=== PATIENT | male | born 1955 | race Caucasian/White ===

== ENCOUNTER 2018-04-23 11:56 | Observation (INO) ==
[2018-04-23 12:32] LABS: BASOPHILS # (AUTO) 0.1 X10^3/uL (0.0-0.1); EOSINOPHILS # (AUTO) 0.1 x10^3/uL (0.0-0.2); HEMATOCRIT 40.2 % (42.0-54.0); LYMPHOCYTES # (AUTO) 2.4 X10^3/uL (1.3-2.9); LYMPHOCYTES % (AUTO) 42.6 % (21.0-51.0); MEAN CORPUSCULAR HEMOGLOBIN 31.4 pg (27.0-34.0); MEAN CORPUSCULAR HGB CONC 34.8 g/dL (33.0-35.0); MEAN CORPUSCULAR VOLUME 90.2 fL (80.0-100.0); MEAN PLATELET VOLUME 7.7 fL (7.4-11.0); MONOCYTES # (AUTO) 0.4 x10^3/uL (0.3-0.8); MONOCYTES % (AUTO) 6.5 % (0.0-13.0); NEUTROPHILS # (AUTO) 2.7 x10^3/uL (2.2-4.8); NEUTROPHILS % (AUTO) 47.9 % (42.0-75.0); PLATELET COUNT 210 X10^3/uL (150.0-450.0); RED BLOOD COUNT 4.45 X10^6/uL (4.7-6.0); RED CELL DISTRIBUTION WIDTH 13.1 % (11.6-16.5); WHITE BLOOD COUNT 5.6 X10^3/uL (3.6-10.0)
[2018-04-23 12:53] LABS: ALANINE AMINOTRANSFERASE 26 Units/L (12-78); ALBUMIN 3.5 g/dL (3.4-5.0); ALKALINE PHOSPHATASE 88 Units/L (46-116); ASPARTATE AMINO TRANSFERASE 44 Units/L (15-37); BLOOD UREA NITROGEN 14 mg/dL (7-18); CALCIUM 8.4 mg/dL (8.5-10.1); CARBON DIOXIDE 29.6 mmol/L (21-32); CHLORIDE 104 mmol/L (98-107); CREATINE KINASE 106 Units/L (39-308); CREATINE KINASE MB < 1.0 ng/mL (0-4.0); CREATININE 0.85 mg/dL (0.70-1.30); MAGNESIUM 2.1 mg/dL (1.7-2.9); SODIUM 140 mmol/L (136-145); TOTAL PROTEIN 6.6 g/dL (6.4-8.2); TROPONIN I < 0.02 ng/mL (0-1.5); eGFR NON BLACK RACES > 60 (>60)
[2018-04-23 12:55] LABS: CKMB % 0.9 % (<4)
--- NOTE | 2018-04-23 13:03 | RAD ---
Chest, one view Indication: Chest pain Comparison: None Findings: The heart is normal in size. No focal infiltrate, significant effusion or pneumothorax is i dentified. There is no acute osseous abnormality. Impression: No acute cardiopulmonary abnormality. Reported By:
--- NOTE | 2018-04-23 14:46 | DR.CP ---
HPI Time Seen Time Seen by Provider: 04/23/18 12:08 HPI Comment HPI Comment: CHEST PAIN WITH SOB AND DIAPHORESIS THAT STARTED 2 HOURS BEFORE COMING TO ED. PAIN SHARP MID STERNAL PAIN , PREVIOUSLY FELT BUT WORSE TODAY AND NOT RESOLVING. PAIN ASSOCIATED WITH DIZZINESS AND DIAPHORESIS. PAIN NON RADIATI NG. TOOK HIS DAILY BABY ASPRIN THIS AM. HISTORY CAD, HTN AND CHF. ALSO HAVING SOB. Complaint Chief Complaint Doctor Comments: CHEST PAIN TIMES 2 HRS. Reviewed Nurses Notes Review: Yes Source History Provided: Patient Mode of Arrival Mode of Arrival: Ambulatory Timing Came on: Suddenly Pain: Present Now Duration Duration: Constant Duration: Hours Location Location of Chest Pain: Chest (midsternal.) Chest Pain Radiation Location: None Context Onset: At rest Cardiac Risk Factors: Smoker, Family History, Hyperlipidemia and HTN PE Risk Factors: None History of: Similar pain in the past and Aspirin in last 24 hours Prehospital Care: ASA Quality Quality: Sharp Severity Severity: Moderate Modifying Factors Worsens: Exertion Impoves: Nothing Associated Signs and Symptoms Associated Signs and Symptoms: Shortness of Breath and Diaphoresis ROS Review of Systems Constitutional: No Symptoms Reported Eyes: No Symptoms Reported ENTM: No Symptoms Reported Respiratoy: Short of Breath Cardiovascular: Chest Pain Gastrointestinal/Abdominal: No Symptoms Reported Genitourinary: No Symptoms Reported Neurological: No Symptoms Reported Musculoskeletal: No Symptoms Reported Integumentary: No Symptoms Reported Endocrine: No Symptoms Reported Psychiatric: No Symptoms Reported All Other Systems: Reviewed and Negative PE Vitals Vitals: Temperature 98 F Pulse Rate [Left Brachial] 65 Pulse Rate 58 Respiratory Rate 18 Blood Pressure [Left Arm] 113/64 Blood Pressure 144/79 O2 Sat by Pulse Oximetry 95 General Limitations: No Limitations General Appearance: Alert and In No Apparent Distress Head Head Exam: Atraumatic and Normocephalic Eyes Eye exam: PERRL and EOMI; negative Scleral Icterus and Conjunctival Injection ENT ENT Exam: Normal Oropharynx, Normal External Ear Exam, Mucous Membranes Moist and TM's Normal Bilaterally Chest Chest Inspection: Symmetric Chest Wall Rise Respiratory Respiratory Exam: Normal Lung Sounds Bilat Respiratory Exam: Bilateral: Clear to Auscultation Cardiovascular Cardiovascular Exam: Regular Rate and Normal Rhythm Pulse: Normal Edema: Normal Abdominal Exam Abdominal Exam: Normal Bowel Sounds and Soft; negative Tenderness Extremities Extremities Exam: Normal Inspection Back Back Exam: Normal Inspection Neurologic Neurological Exam: Alert and CN II-XII Intact; negative Motor Sensory Deficit Psychiatric Psychiatric Exam: Normal Affect Skin Skin Exam: Intact MDM Differential Diagnosis Differential Diagnosis: Angina, CHF, Gastritis, Myocardial Infarction, Pericarditis, Pleuritis and Pneumonia COURSE Treatment Treatment: SEE ORDERS. Consultation Consultation Comments: PATIENT ADMITTED. Education/Counseling Education/Counseling: Family ROR Labs Reviewed Laboratory Results Reviewed?: Yes Result Diagrams: 04/24/18 04:10 04/24/18 04:10 Laboratory: WBC 5.7 X10^3/uL (3.6-10.0) 04/24/18 04:10 RBC 4.47 X10^6/uL (4.7-6.0) L 04/24/18 04:10 Hgb 14.2 g/dL (13.5-18.0) 04/24/18 04:10 Hct 40.5 % (42.0-54.0) L 04/24/18 04:10 MCV 90.5 fL (80.0-100.0) 04/24/18 04:10 MCH 31.8 pg (27.0-34.0) 04/24/18 04:10 MCHC 35.2 g/dL (33.0-35.0) H 04/24/18 04:10 RDW 13.2 % (11.6-16.5) 04/24/18 04:10 Plt Count 209 X10^3/uL (150.0-450.0) 04/24/18 04:10 MPV 8.1 fL (7.4-11.0) 04/24/18 04:10 Neut % (Auto) 46.5 % (42.0-75.0) 04/24/18 04:10 Lymph % (Auto) 43.2 % (21.0-51.0) 04/24/18 04:10 [place] % (Auto) 5.9 % (0.0-13.0) 04/24/18 04:10 Eos % (Auto) 3.7 % (0.9-2.9) H 04/24/18 04:10 Baso % (Auto) 0.7 % (0.2-1.0) 04/24/18 04:10 Neut # (Auto) 2.6 x10^3/uL (2.2-4.8) 04/24/18 04:10 Lymph # (Auto) 2.5 X10^3/uL (1.3-2.9) 04/24/18 04:10 [place] # (Auto) 0.3 x10^3/uL (0.3-0.8) 04/24/18 04:10 Eos # (Auto) 0.2 x10^3/uL (0.0-0.2) 04/24/18 04:10 Baso # (Auto) 0.0 X10^3/uL (0.0-0.1) 04/24/18 04:10 Absolute Nucleated RBC 0.1 /100WBC 04/24/18 04:10 INR Target Range - 04/23/18 12:21 INR 1.02 (0.8-1.3) 04/23/18 12:21 APTT 29.1 SECONDS (22.9-36.5) 04/23/18 12:21 PTT Comment - 04/23/18 12:21 Sodium 143 mmol/L (136-145) 04/24/18 04:10 Corrected Sodium TNP 04/24/18 04:10 Potassium 4.3 mmol/L (3.5-5.1) 04/24/18 04:10 Chloride 105 mmol/L (98-107) 04/24/18 04:10 Carbon Dioxide 30.5 mmol/L (21-32) 04/24/18 04:10 BUN 13 mg/dL (7-18) 04/24/18 04:10 Creatinine 0.88 mg/dL (0.70-1.30) 04/24/18 04:10 Est GFR (MDRD) Af Amer > 60 (>60) 04/24/18 04:10 Est GFR (MDRD) Non-Af > 60 (>60) 04/24/18 04:10 Glucose 98 mg/dL (65-99) 04/24/18 04:10 Calcium 8.0 mg/dL (8.5-10.1) L 04/24/18 04:10 Corrected Calcium 8.7 mg/dL (8.5-10.1) 04/24/18 04:10 Magnesium 1.9 mg/dL (1.7-2.9) 04/24/18 04:10 Total Bilirubin 0.40 mg/dL (0.2-1.0) 04/24/18 04:10 AST 41 Units/L (15-37) H 04/24/18 04:10 ALT 25 Units/L (12-78) 04/24/18 04:10 Alkaline Phosphatase 80 Units/L (46-116) 04/24/18 04:10 Creatine Kinase 88 Units/L (39-308) 04/23/18 23:40 CK-MB (CK-2) 1.0 ng/mL (0-4.0) 04/23/18 23:40 CK/CKMB % Calc 1.1 % (<4) 04/23/18 23:40 Troponin I < 0.02 ng/mL (0-1.5) 04/23/18 23:40 Total Protein 6.1 g/dL (6.4-8.2) L 04/24/18 04:10 Albumin 3.1 g/dL (3.4-5.0) L 04/24/18 04:10 Globulin 3.0 g/dL (2.5-4.5) 04/24/18 04:10 Albumin/Globulin Ratio 1.0 Ratio (1.1-2.1) L 04/24/18 04:10 Triglycerides 88 mg/dL (0-150) 04/24/18 04:10 Cholesterol 247 mg/dL (0-200) H 04/24/18 04:10 LDL Cholesterol, Calc 192 mg/dL (0-100) H 04/24/18 04:10 HDL Cholesterol 37 mg/dL (40-60) L 04/24/18 04:10 Cholesterol/HDL Ratio 6.7 (0.0-5.0) H 04/24/18 04:10 Specimen Type Clean catch urine 04/24/18 05:04 Urine Color Yellow (YELLOW) 04/24/18 05:04 Urine Appearance Clear (CLEAR) 04/24/18 05:04 Urine pH 5.0 (5.0 - 8.0) 04/24/18 05:04 Ur Specific [place] 1.020 (1.000-1.030) 04/24/18 05:04 Urine Protein Negative (NEGATIVE) 04/24/18 05:04 Urine Glucose (UA) Negative (NEGATIVE) 04/24/18 05:04 Urine Ketones Negative (NEGATIVE) 04/24/18 05:04 Urine Occult Blood Negative (NEGATIVE) 04/24/18 05:04 Urine Nitrite Negative (NEGATIVE) 04/24/18 05:04 Urine Bilirubin Negative (NEGATIVE) 04/24/18 05:04 Urine Urobilinogen Normal (NORMAL) 04/24/18 05:04 Ur Leukocyte Esterase Negative (NEGATIVE) 04/24/18 05:04 XRAY XRAY Interpreted by: Radiologist XRAY Findings: REPORT NOTED. EKG [place]: Normal Rhythm: NSR Diagnosis Discharge Problem: Chest pain Qualifiers: Chest pain type: precordial pain Qualified Code(s): R07.2 - Precordial pain
[2018-04-23] MEDS ORDERED: NS 1000 ML 1,000 ML IV SCH (17:00)
[2018-04-23 18:31] LABS: CREATINE KINASE 131 Units/L (39-308); CREATINE KINASE MB < 1.0 ng/mL (0-4.0); TROPONIN I < 0.02 ng/mL (0-1.5)
[2018-04-23 18:39] LABS: CKMB % 0.8 % (<4)
[2018-04-23] MEDS: ASPIRIN EC 81 MG PO SCH (19:50)
[2018-04-23] MEDS: PriLOSEC PO SCH (19:50)
[2018-04-23 20:46] VITALS: BMI 25.0
[2018-04-24 00:16] LABS: CKMB % 1.1 % (<4); CREATINE KINASE 88 Units/L (39-308)
[2018-04-24 00:17] LABS: TROPONIN I < 0.02 ng/mL (0-1.5)
[2018-04-24 05:15] LABS: BASOPHILS % (AUTO) 0.7 % (0.2-1.0); EOSINOPHILS # (AUTO) 0.2 x10^3/uL (0.0-0.2); EOSINOPHILS % (AUTO) 3.7 % (0.9-2.9); HEMATOCRIT 40.5 % (42.0-54.0); HEMOGLOBIN 14.2 g/dL (13.5-18.0); LYMPHOCYTES # (AUTO) 2.5 X10^3/uL (1.3-2.9); LYMPHOCYTES % (AUTO) 43.2 % (21.0-51.0); MEAN CORPUSCULAR HEMOGLOBIN 31.8 pg (27.0-34.0); MEAN CORPUSCULAR HGB CONC 35.2 g/dL (33.0-35.0); MEAN CORPUSCULAR VOLUME 90.5 fL (80.0-100.0); MEAN PLATELET VOLUME 8.1 fL (7.4-11.0); MONOCYTES # (AUTO) 0.3 x10^3/uL (0.3-0.8); MONOCYTES % (AUTO) 5.9 % (0.0-13.0); NEUTROPHILS # (AUTO) 2.6 x10^3/uL (2.2-4.8); NEUTROPHILS % (AUTO) 46.5 % (42.0-75.0); PLATELET COUNT 209 X10^3/uL (150.0-450.0); RED BLOOD COUNT 4.47 X10^6/uL (4.7-6.0); RED CELL DISTRIBUTION WIDTH 13.2 % (11.6-16.5); WHITE BLOOD COUNT 5.7 X10^3/uL (3.6-10.0)
[2018-04-24 05:16] LABS: BILIRUBIN,URINE NEGATIVE (NEGATIVE); BLOOD/HEMOGLOBIN,URINE NEGATIVE (NEGATIVE); GLUCOSE, URINE NEGATIVE (NEGATIVE); KETONES,URINE NEGATIVE (NEGATIVE); LEUKOCYTE ESTERASE ,URINE NEGATIVE (NEGATIVE); NITRITES,URINE NEGATIVE (NEGATIVE); PROTEIN,URINE NEGATIVE (NEGATIVE); UROBILINOGEN,URINE NORMAL (NORMAL)
[2018-04-24 05:22] LABS: APPEARANCE,URINE CLEAR (CLEAR); COLOR,URINE YELLOW (YELLOW)
[2018-04-24 05:28] LABS: ALANINE AMINOTRANSFERASE 25 Units/L (12-78); ALBUMIN 3.1 g/dL (3.4-5.0); ALKALINE PHOSPHATASE 80 Units/L (46-116); ASPARTATE AMINO TRANSFERASE 41 Units/L (15-37); BLOOD UREA NITROGEN 13 mg/dL (7-18); CARBON DIOXIDE 30.5 mmol/L (21-32); CHLORIDE 105 mmol/L (98-107); CHOL/HDL RATIO 6.7 (0.0-5.0); CHOLESTEROL 247 mg/dL (0-200); COR CA(FOR HYPOALB) 8.7 mg/dL (8.5-10.1); CREATININE 0.88 mg/dL (0.70-1.30); HDL CHOLESTEROL 37 mg/dL (40-60); MAGNESIUM 1.9 mg/dL (1.7-2.9); SODIUM 143 mmol/L (136-145); TOTAL PROTEIN 6.1 g/dL (6.4-8.2); TRIGLYCERIDES 88 mg/dL (0-150); eGFR NON BLACK RACES > 60 (>60)
[2018-04-24] MEDS ORDERED: PATIENT'S HOME MEDICATION (Cyanocobalamin-Cobamamide [B12] 1 TAB) SL SCH (09:00)
[2018-04-24] MEDS: ASPIRIN EC 81 MG PO SCH (09:25)
[2018-04-24] MEDS: PriLOSEC PO SCH (09:25)
[2018-04-24 13:33] VITALS: BP 113/64
--- NOTE | 2018-05-03 08:14 | DR.CARTERS ---
Short Stay Summary - Short Stay Summary for: Short Stay Summary for Date of:: 04/24/18 - Admission Date Date of Admission: 04/23/18 - Discharge Date Discharge Date: 04/24/18 - Admission Diagnoses (1) Chest pain Status: Acute - Hospital Course Hospital Course: IS A 63 YEAR OLD PATIENT OF [employer] WHO PRESENTED TO THE ER WITH REPORTS OF SHORTNESS OF BREATH, CHEST PAIN, AND DIAPHORESIS. HE REPORTED THAT SYMPTOMS STARTED APPROXIMATELY TWO HOURS PRIOR TO ARRIVAL. HE REPORTED HAVING THESE SAME SYMPTOMS OFTEN, BUT THAT THEY ALWAYS SUBSIDE. HE STATED THAT SYMPTOMS ARE WORSENING INSTEAD OF GETTING BETTER. HE RATED CHEST PAIN A 6/10. ON ARRIVAL, VITALS WERE 98.1-20-70-91%-148/77. LABS WERE OBTAINED. ABNORMAL LAB VALUES INCLUDED THE FOLLOWING: RBC 4.45, HCT 40.2, CALCIUM 8.4, AST 44. CARDIAC ENZYMES WITHIN NORMAL LIMITS. EKG REVEALED: SINUS RHYTHM WITH HR 68. CHEST XRAY REVEALED: NO ACUTE CARDIOPULMONARY ABNORMALITY. HE WAS ADMITTED FOR FURTHER TREATMENT AND EVALUATION AND STARTED ON NORMAL SALINE @KVO AND HOME MEDICATIONS WERE RESUMED. WE PLANNED TO OBTAIN SERIAL CARDIAC ENZYMES AND EKGS AND CONTINUE TO MONITOR PATIENT. ON THE MORNING FOLLOWING ADMISSION, PATIENT WAS ALERT AND ORIENTED, LYING IN BED ON MORNING ROUNDS. HE REPORTED FEELING BETTER AND DENIED CHEST PAIN. ON EXAMINATION, HEART REGULAR IN RATE AND RHYTHM. BILATERAL LUNGS CLEAR TO AUSCULTATION. ABDOMEN ROUND, SOFT, AND NON-TENDER WITH NORMAL BOWEL SOUNDS NOTED IN ALL QUADRANTS. HIS VITLAS UPON ROUNDS WERE 97.6-59-18-98%-116/72. LABS WERE OBTAINED. ABNORMAL LAB VALUES INCLUDE THE FOLLOWING: RBC 4.47, HCT 40.5, CALCIUM 8.0, AST 41, TOTAL PROTEIN 6.1, ALBUMIN 3.1, CHOLESTEROL 247, LDL 192, HDL 37, CHOL/HDL RATIO 6.7. CARDIAC ENZYMES WITHIN NORMAL LIMITS AND EKGS ARE UNCHANGED. WE DISCUSSED CHOLESTEROL LEVELS. HE STATED THAT HIS SHOE DYER HAS WROTE HIM A PRESCRIPTION FOR LIPITOR BUT HE HASNT HAD IT FILLED YET. WE INSTRUCTED PATIENT TO TAKE THE LIPITOR PRESCRIBED BY HIS SHOE DYER. WE PLANNED FOR DISCHARGE. INSTRUCTIONS FOR MEDICATIONS AND FOLLOW-UP WERE DISCUSSED WITH PATIENT. HE VERBALIZED UNDERSTANDING. HE WAS DISCHARGED HOME IN STABLE CONDITION WITH SPOUSE. HE WAS INSTRUCTED TO FOLLOW-UP WITH HIS PCP IN THREE DAYS ANS START ECOTRIN 325MG PO DAILY WELL THE LIPITOR. - Discharge Medications Discharge Medications: Home Medication List aspirin [Adult Low Dose Aspirin] 81 mg PO QDAY 04/23/18 [History] cyanocobalamin-cobamamide [B12] 1 tab SUBLINGUAL DAILY 04/23/18 [History] [id number]-[id number]-lycopen-lutein [Centrum Silver Men] 1 tab PO QDAY 04/23/18 [History] omeprazole magnesium [Prilosec OTC] 20 mg PO QDAY 04/23/18 [History] aspirin [Ecotrin] 325 mg PO QDAY #90 tab 04/24/18 [Rx] Prescriptions: aspirin [Ecotrin] Cesar White - Discharge Plan Disposition: 01 HOME, SELF-CARE Condition: Stable Prescriptions: aspirin [Ecotrin] 325 mg PO QDAY #90 tab - Follow up/Referrals Follow up/Referrals: ANNAMARIA MARTINEZ [Primary Care Provider] - 3 days - Instructions Additional Instructions: diet as tolerated. activity as tolerated. 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
== END 2018-04-24 14:15 | disposition home or self-care (01) ==
LOC: MED/SURG 11:56 → ER 11:56 → MED/SURG 17:41
PROVIDERS: ADMIT Internal Medicine; ATTEND Internal Medicine
DX: R06.02 Shortness of breath; Z79.899 Other long term (current) drug therapy; Z79.01 Long term (current) use of anticoagulants; E78.2 Mixed hyperlipidemia; R07.89 Other chest pain
CPT/HCPCS: 36415; 71010; 71045; 80053; 80061; 81003; 82550; 82553; 83735; 84484; 85025; 85610; 85730; 93005; 94760; 96365; 99284; A4222; G0378; J7030